=== PATIENT | female | born 1950 | race Caucasian/White ===

== ENCOUNTER 2021-03-23 12:19 | Emergency (ER) | payer SELFPAY ==
[~2021-03-23] VITALS: Ht 162.6 cm; Wt 66.0 kg
--- NOTE | 2021-03-23 13:01 | NUR ---
Pt states she selfdiagnosed herself with afib. Pt states she's been feeling palpitations and SOB for the last month. Reports wearing a halter monitor for 48 hours and is supposed to have an echo and stress test, but denies being a pt of a junk removal specialist. Connected to all monitors. Call NADN. zoë
[2021-03-23] MEDS ORDERED: ASPIRIN 81 MG TABLET CHEW PO ONE (14:00)
[2021-03-23] MEDS ORDERED: LORazepam 2 MG/ML, 1ML IVPush ONE (14:00)
[2021-03-23] MEDS ORDERED: SODIUM CHLORIDE FLUSH 10ML SYR IVF ONE (14:00)
[2021-03-23] MEDS ORDERED: LORazepam 1MG TABLET ONE (14:20)
[2021-03-23] MEDS ORDERED: ASPIRIN 81 MG TABLET CHEW ONE (14:20)
[2021-03-23 14:23] LABS: BASOPHILS % (AUTO) 1 % (0-1); EOSINOPHILS % (AUTO) 2 % (1-7); LYMPHOCYTES % (AUTO) 40 % (22-44); MEAN CORPUSCULAR HGB CONC 34.9 g/dL (32.4-35.8); MEAN PLATELET VOLUME 8.3 fL (7.4-10.4); MONOCYTES % (AUTO) 7 % (2-9); NEUTROPHILS % (AUTO) 50 % (42-75); PLATELET COUNT 194 x10^3/uL (130-400); RED BLOOD COUNT 4.71 x10^6/uL (3.82-5.3); RED CELL DISTRIBUTION WIDTH 12.6 % (9.6-15.2)
[2021-03-23 14:24] LABS: MD NO
[2021-03-23 14:34] LABS: ALANINE AMINOTRANSFERASE 32 U/L (12-78); ALBUMIN 3.8 g/dL (3.4-5.0); ANION GAP 7 mmol/L (5-15); CALCIUM 9.5 mg/dL (8.5-10.1); CHLORIDE 110 mmol/L (98-107); CREATININE 0.76 mg/dL (0.55-1.02)
[2021-03-23 14:44] LABS: ALKALINE PHOSPHATASE 74 U/L (45-117); BILIRUBIN,TOTAL 0.4 mg/dL (0.2-1.0); T4 (THYROXINE) 10.4 mcg/dL (4.8-13.9); TROPONIN I < 0.015 ng/mL (0.000-0.045)
[2021-03-23 15:24] VITALS: BP 113/71
--- NOTE | 2021-03-23 15:24 | NUR ---
MD Winslow back to bedside to update pt on POC including d/c. All questions answered.
== END 2021-03-23 15:43 | disposition home or self-care (01) ==
LOC: ED 15:35
DX: R00.2 Palpitations (principal); I48.91 Unspecified atrial fibrillation; Z87.891 Personal history of nicotine dependence
CPT/HCPCS: 36415; 71045; 80053; 83735; 83880; 84436; 84443; 84484; 85025; 93005; 96374; 99285; J2060